=== PATIENT | male | born 1970 | race Caucasian/White ===

== ENCOUNTER → 2017-07-04 | Outpatient (CLI) | payer BC ==
[2016-05-26 11:00] VITALS: BP 105/69
[~2017-07-04] MED LIST: ALPR0.5T PO; HYDR-971 PO; OXYC-323 PO; PANT20TA2 PO; PANT20TA3 PO; RANI150T6 PO; SERT100T8 PO; SERT25TA PO
--- NOTE | 2017-07-04 12:21 | KCIC ---
EXAM: Right knee, 2 views. HISTORY: Pain. COMPARISON: None. FINDINGS: Frontal and lateral views of the right knee are obtained. There is no fracture, dislocation or subluxation. There is trace joint fluid. IMPRESSION: No acute osseous finding. Electronically signed by: Adriane Glaser MD (07/04/2017 12:18 PM) [facility]
== END | disposition home or self-care (01) ==
LOC: KCIC 11:38
PROVIDERS: ATTEND Nurse Practitioner Family
DX: M25.561 Pain in right knee (principal)
CPT/HCPCS: 73560

== ENCOUNTER 2017-09-13 19:39 | Emergency (ER) | payer BC ==
[2017-09-13] MEDS: MORPHINE SULFATE 4 MG/ML DISP.SYRIN. IV (20:25)
[2017-09-13 20:32] LABS: ADD MAN DIFF? NO
[2017-09-13 20:35] LABS: BASO # 0.1 x10^3/uL (0.0-0.2); BASO % 1 % (0-3); EOS % 2 % (0-3); HEMATOCRIT 43.6 % (39.0-53.0); HEMOGLOBIN 14.8 g/dL (13.0-17.5); LYMPH # 1.9 x10^3/uL (1.0-4.8); LYMPH % 22 % (24-48); MEAN CORPUSCULAR HEMOGLOBIN 30 pg (25-35); MEAN CORPUSCULAR HGB CONC 34 g/dL (31-37); MEAN CORPUSCULAR VOLUME 87 fL (79-100); MONO % 11 % (0-9); NEUT % 64 % (31-73); PLATELET COUNT 275 x10^3/uL (140-400); RED BLOOD COUNT 4.99 x10^6/uL (4.30-5.70); RED CELL DISTRIBUTION WIDTH 14.1 % (11.5-14.5); WHITE BLOOD COUNT 8.8 x10^3/uL (4.0-11.0)
[2017-09-13 20:55] LABS: ANION GAP 12 (6-14); BLOOD UREA NITROGEN 6 mg/dL (8-26); CALCIUM 8.5 mg/dL (8.5-10.1); CARBON DIOXIDE 26 mmol/L (21-32); CHLORIDE 101 mmol/L (98-107); CREATININE 0.8 mg/dL (0.7-1.3); GFR 104.1; GLUCOSE 101 mg/dL (70-99); POTASSIUM 3.4 mmol/L (3.5-5.1); SODIUM 139 mmol/L (136-145)
[2017-09-13] MEDS ORDERED: CONTRAST GIVEN MC (21:00)
[2017-09-13] MEDS: IOHEXOL 300 MG/ML 100ML VIAL. IV (21:12)
[2017-09-13] MEDS: IV NORMAL SALINE 500ML BAG 500 ML IV (21:30)
[2017-09-13] MEDS: HYDROcodone/APAP 5/325MG 1 TAB TABLET PO (23:05)
== END 2017-09-13 22:06 | disposition home or self-care (01) ==
LOC: ER 19:39
DX: K42.9 Umbilical hernia without obstruction or gangrene (principal); F41.9 Anxiety disorder, unspecified; Z90.49 Acquired absence of other specified parts of digestive tract
CPT/HCPCS: 36415; 74160; 80048; 83605; 85025; 96361; 96374; 99285-25; J2270; J7040; Q9967

== ENCOUNTER 2017-09-22 09:06 | Day surgery (SDC) | payer BC ==
[~2017-09-22 09:06] MED LIST changes: -ALPR0.5T PO; -HYDR-971 PO; +HYDROmorphone 2 MG/ML VIAL IV; +LIDOCAINE 1% PF 2 ML VIAL. ID; +LIDOCAINE 2% PF Vial for OR 5 ML VIAL.; +ONDANSETRON PF 4 MG/2 ML VIAL. IV; -OXYC-323 PO; -PANT20TA2 PO; -PANT20TA3 PO; +PROPOFOL 20 ML IV; -RANI150T6 PO; +ROCURONIUM 50 MG/5 ML VIAL.; -SERT100T8 PO; -SERT25TA PO; +SUCCINYLCHOLINE 200 MG/10 ML VIAL.; +fentaNYL PF VIAL 100 MCG/2 ML VIAL; +fentaNYL PF VIAL 100 MCG/2 ML VIAL IV
[2017-09-22] MEDS: IV RINGERS,LACTATED 1000ML 1,000 ML IV (09:35)
[2017-09-22] MEDS ORDERED: DEXAMETHASONE SOD PHOS 20 MG/5 ML VIAL. (12:14)
[2017-09-22] MEDS ORDERED: DESFLURANE 31 TO 60 MINUTES IH (12:14)
[2017-09-22] MEDS: BUPIVAC MPF-EPI 0.75%-1:200000 30 ML VIAL. (12:22)
[2017-09-22] MEDS ORDERED: NEOSTIGMINE 10 MG/10 ML VIAL. (12:26)
[2017-09-22] MEDS ORDERED: GLYCOPYRROLATE 1 MG/5 ML VIAL. (12:26)
[2017-09-22] MEDS ORDERED: ONDANSETRON PF 4 MG/2 ML VIAL. (12:26)
[2017-09-22] MEDS ORDERED: fentaNYL PF VIAL 100 MCG/2 ML VIAL (12:28)
[2017-09-22] MEDS: fentaNYL PF VIAL 100 MCG/2 ML VIAL IV ×2 (13:34→13:43)
[2017-09-22] MEDS: PROCHLORPERAZINE 10 MG/2 ML VIAL. IV ×2 (13:34→13:43)
[2017-09-22] MEDS: MORPHINE SULFATE 2 MG/ML DISP.SYRIN. IV ×2 (14:24→14:38)
[2017-09-22] MEDS: oxyCODONE/APAP 5/325 1 TAB TABLET PO (14:25)
== END 2017-09-22 15:43 | disposition home or self-care (01) ==
LOC: SURG 09:06
DX: K43.6 Other and unspecified ventral hernia with obstruction, without gangrene (principal); E66.9 Obesity, unspecified; Z68.35 Body mass index [BMI] 35.0-35.9, adult; F41.9 Anxiety disorder, unspecified; Z72.89 Other problems related to lifestyle; K21.9 Gastro-esophageal reflux disease without esophagitis; Z87.891 Personal history of nicotine dependence; Z90.49 Acquired absence of other specified parts of digestive tract; Z88.6 Allergy status to analgesic agent
CPT/HCPCS: 49653; C1781; J0330; J0780; J1100; J2270; J2405; J2704; J2710; J3010; J3490; J7120

== ENCOUNTER 2018-07-14 10:43 | Inpatient (IN) | payer BC ==
[~2018-07-14] VITALS: Ht 170.2 cm; Wt 106.6 kg
[~2018-07-14 10:43] MED LIST changes: +ALPR0.5T PO; +HYDR-971 PO; -HYDROmorphone 2 MG/ML VIAL IV; -LIDOCAINE 1% PF 2 ML VIAL. ID; -LIDOCAINE 2% PF Vial for OR 5 ML VIAL.; -ONDANSETRON PF 4 MG/2 ML VIAL. IV; +OXYC-323 PO; +PANT20TA2 PO; +PANT20TA3 PO; -PROPOFOL 20 ML IV; +RANI150T21 PO; -ROCURONIUM 50 MG/5 ML VIAL.; +SERT100T8 PO; +SERT25TA PO; -SUCCINYLCHOLINE 200 MG/10 ML VIAL.; -fentaNYL PF VIAL 100 MCG/2 ML VIAL; -fentaNYL PF VIAL 100 MCG/2 ML VIAL IV
[2018-07-14] MEDS ORDERED: ALBUTEROL SULFATE 2.5 MG/3 ML NEBU. NEB ONE (11:45)
[2018-07-14 11:59] LABS: BASO # 0.1 x10^3/uL (0.0-0.2); BASO % 1 % (0-3); EOS # 0.2 x10^3/uL (0.0-0.7); EOS % 2 % (0-3); HEMATOCRIT 39.7 % (39.0-53.0); HEMOGLOBIN 13.8 g/dL (13.0-17.5); LYMPH # 1.8 x10^3/uL (1.0-4.8); LYMPH % 19 % (24-48); MEAN CORPUSCULAR HEMOGLOBIN 31 pg (25-35); MEAN CORPUSCULAR HGB CONC 35 g/dL (31-37); MEAN CORPUSCULAR VOLUME 89 fL (79-100); MONO # 0.8 x10^3/uL (0.0-1.1); MONO % 9 % (0-9); NEUT # 6.4 x10^3uL (1.8-7.7); NEUT % 68 % (31-73); PLATELET COUNT 283 x10^3/uL (140-400); RED BLOOD COUNT 4.47 x10^6/uL (4.30-5.70); RED CELL DISTRIBUTION WIDTH 14.2 % (11.5-14.5); WHITE BLOOD COUNT 9.3 x10^3/uL (4.0-11.0)
--- NOTE | 2018-07-14 12:11 | PHYS DOC ---
Past Medical History Past Medical History: Anxiety Past Surgical History: Appendectomy, Cholecystectomy, Tonsillectomy, Other Additional Past Surgical Histo: left foot compound fracture repair,HERNIA Alcohol Use: Occasionally Drug Use: None Adult General Chief Complaint Chief Complaint: SHORTNESS OF BREATH HPI HPI Patient is a 47 year old male who presents to the ER with complaints of a cough and shortness of breath since 07/12/18. Pt states on that day he had surgery on his left ankle here on 07/12/18. He denies any fever. States he has been taking a full strength aspirin since the surgery. He reports the cough is productive with yellow sputum produced. Pt denies any nausea, vomiting, chest pain, or weakness. States he feels short of breath with activity. Pt has been taking 2 tablets of 5 mg oxycodone every 4-6 hours as needed for pain since the surgery and reports that his pain has been well controlled. Review of Systems Review of Systems Constitutional: Denies fever or chills [] Eyes: Denies change in visual acuity, redness, or eye pain [] HENT: Denies nasal congestion or sore throat [] Respiratory: Reports cough with yellow sputum, shortness of breath since after having surgery on 07/12/18 Cardiovascular: No additional information not addressed in HPI [] GI: Denies abdominal pain, nausea, vomiting, or diarrhea [] Integument: Denies rash or skin lesions [] Neurologic: Denies headache, focal weakness or sensory changes [] All other systems were reviewed and found to be within normal limits, except as documented in this note. Current Medications Current Medications Current Medications Medications (Trade) Dose Ordered Sig/Fuentes Start Time Stop Time Status Last Admin Dose Admin Albuterol Sulfate (Ventolin Neb Soln) 2.5 mg 1X ONCE 07/14/18 11:45 07/14/18 11:46 DC 07/14/18 11:58 2.5 MG Info (CONTRAST GIVEN -- Rx MONITORING) 1 each PRN DAILY PRN 07/14/18 13:00 07/16/18 12:59 Iohexol (Omnipaque 300 Mg/ml) 75 ml 1X ONCE 07/14/18 13:00 07/14/18 13:01 DC 07/14/18 13:17 75 ML Piperacillin Sod/ Tazobactam Sod 3.375 gm/Sodium Chloride 50 ml @ 100 mls/hr 1X ONCE 07/14/18 14:15 07/14/18 14:44 Cancel Allergies Allergies Allergies Coded Allergies Type Severity Reaction Last Updated Verified ibuprofen Allergy Unknown Swelling 09/22/17 Yes Physical Exam Physical Exam Constitutional: Well developed, well nourished, no acute distress, non-toxic appearance. [] HENT: Normocephalic, atraumatic, bilateral external ears normal, oropharynx moist, no oral exudates, nose normal. [] Eyes: PERRLA, conjunctiva normal, no discharge. [] Neck: Normal range of motion, no tenderness, supple, no stridor. [] Cardiovascular:Heart rate regular rhythm, no murmur [] Lungs & Thorax: Left lung sounds CTA, right lung sounds diminished with crackles posterior Skin: Warm, dry, no erythema, no rash. [] Extremities: No cyanosis, no clubbing, ROM intact, no edema; Post-op splint to L ankle. [] Neurologic: Alert and oriented X 3, normal motor function, normal sensory function, no focal deficits noted. [] Psychologic: Affect normal, judgement normal, mood normal. [] Current Patient Data Vital Signs Vital Signs Date Time Temp Pulse Resp B/P (MAP) Pulse Ox O2 Delivery O2 Flow Rate FiO2 07/14/18 14:15 100 20 179/87 (117) 96 Room Air 07/14/18 11:16 98.3 98.3 Lab Values Laboratory Tests Test 07/14/18 11:45 White Blood Count 9.3 x10^3/uL (4.0-11.0) Red Blood Count 4.47 x10^6/uL (4.30-5.70) Hemoglobin 13.8 g/dL (13.0-17.5) Hematocrit 39.7 % (39.0-53.0) Mean Corpuscular Volume 89 fL (79-100) Mean Corpuscular Hemoglobin 31 pg (25-35) Mean Corpuscular Hemoglobin Concent 35 g/dL (31-37) Red Cell Distribution Width 14.2 % (11.5-14.5) Platelet Count 283 x10^3/uL (140-400) Neutrophils (%) (Auto) 68 % (31-73) Lymphocytes (%) (Auto) 19 % (24-48) L Monocytes (%) (Auto) 9 % (0-9) Eosinophils (%) (Auto) 2 % (0-3) Basophils (%) (Auto) 1 % (0-3) Neutrophils # (Auto) 6.4 x10^3uL (1.8-7.7) Lymphocytes # (Auto) 1.8 x10^3/uL (1.0-4.8) Monocytes # (Auto) 0.8 x10^3/uL (0.0-1.1) Eosinophils # (Auto) 0.2 x10^3/uL (0.0-0.7) Basophils # (Auto) 0.1 x10^3/uL (0.0-0.2) Sodium Level 142 mmol/L (136-145) Potassium Level 3.7 mmol/L (3.5-5.1) Chloride Level 105 mmol/L (98-107) Carbon Dioxide Level 26 mmol/L (21-32) Anion Gap 11 (6-14) Blood Urea Nitrogen 11 mg/dL (8-26) Creatinine 1.0 mg/dL (0.7-1.3) Estimated GFR (Cockcroft-Gault) 80.1 BUN/Creatinine Ratio 11 (6-20) Glucose Level 93 mg/dL (70-99) Calcium Level 9.0 mg/dL (8.5-10.1) Total Bilirubin 0.3 mg/dL (0.2-1.0) Aspartate Amino Transferase (AST) 28 U/L (15-37) Alanine Aminotransferase (ALT) 94 U/L (16-63) H Alkaline Phosphatase 90 U/L (46-116) Total Protein 7.6 g/dL (6.4-8.2) Albumin 3.3 g/dL (3.4-5.0) L Albumin/Globulin Ratio 0.8 (1.0-1.7) L Laboratory Tests 07/14/18 11:45 Laboratory Tests 07/14/18 11:45 EKG EKG [] Radiology/Procedures Radiology/Procedures PROCEDURE: CT ANGIOGRAPHY CHEST CT ANGIOGRAPHY CHEST Indication: CHEST PAIN, SHORTNESS OF BREATH, AND COUGH
OMNI 300 75ML, NO PRIORS . Comparison: No comparison is available. Technique: After intravenous contrast administration, CT imaging was performed of the chest. MIP reconstructions were obtained. Exposure: One or more of the following individualized dose reduction techniques were utilized for this examination: 1. Automated exposure control 2. Adjustment of the mA and/or kV according to patient size 3. Use of iterative reconstruction technique. FINDINGS: Pulmonary arteries:No evidence of pulmonary embolism. Thoracic aorta: No evidence of aneurysm or dissection. Thyroid gland:Visualized aspect is unremarkable. Lymph nodes:No significant enlargement Heart: No significant pericadial effusion. Esophagus: Small hiatal hernia versus mild distal esophageal wall thickening. Pleural spaces: No significant effusion Lungs: Multiple patchy foci of airspace consolidation, mainly throughout the right lung. To lesser extent involving the left lower lobe. Many of these have a smaller nodular morphology. Trachea and central airways: Patent Bones: No destructive process Upper abdomen: Slices through the upper abdomen are limited due to the technique .No obvious acute findings. IMPRESSION: 1. Numerous airspace opacities, throughout the right lung, and to a lesser extent in the left lower lobe. These are most likely of inflammatory or infectious etiology. However, recommend follow-up CT chest after treatment to confirm that they improved/resolved. 2. Negative for pulmonary embolism.[] PROCEDURE: CHEST PA & LATERAL PA and lateral chest radiograph. History: Ankle surgery 2 days ago. Chest tightness and shortness of breath. Comparison: May 25, 2018. Findings: Cardiomediastinal silhouette is within normal limits for size. No pneumothorax or pleural effusion is identified. There is interval development of alveolar infiltrates involving the right upper lobe and right middle lobe. Impression: 1. Right upper and right middle lobe infiltrate, compatible with pneumonia Course & Med Decision Making Course & Med Decision Making Pertinent Labs and Imaging studies reviewed. (See chart for details) Dx: postoperative pneumonia Pt's cxr revealed R upper and mid lobe infiltrates. 4.5 gm of zosyn IV was given in the ER. VSS. CT chest negative for PE 1415- Spoke with Dr. Bryson will admit patient for post-op pneumonia [] Dragon Disclaimer Dragon Disclaimer This electronic medical record was generated, in whole or in part, using a voice recognition dictation system. Departure Departure Impression: Primary Impression: Postoperative pneumonia Disposition: 09 ADMITTED INPATIENT Admitting Physician: Deanne Bryson Condition: STABLE Referrals: KRISTIAN KWAN MD (PCP) TANIA DAILY CASING COOKER Jul 14, 2018 12:11
[2018-07-14 12:12] LABS: GFR 80.1; POTASSIUM 3.7 mmol/L (3.5-5.1)
[2018-07-14 12:18] LABS: ALBUMIN 3.3 g/dL (3.4-5.0); ALBUMIN/GLOBULIN RATIO 0.8 (1.0-1.7); TOTAL BILIRUBIN 0.3 mg/dL (0.2-1.0); TOTAL PROTEIN 7.6 g/dL (6.4-8.2)
--- NOTE | 2018-07-14 12:33 | RAD ---
PA and lateral chest radiograph. History: Ankle surgery 2 days ago. Chest tightness and shortness of breath. Comparison: May 25, 2018. Findings: Cardiomediastinal silhouette is within normal limits for size. No pneumothorax or pleural effusion is identified. There is interval development of alveolar infiltrates involving the right upper lobe and right middle lobe. Impression: 1. Right upper and right middle lobe infiltrate, compatible with pneumonia Electronically signed by: David Mace MD (07/14/2018 12:30 PM) [place] [id number]
[2018-07-14] MEDS ORDERED: IOHEXOL 300 MG/ML 100ML VIAL. IV ONE (13:00)
[2018-07-14] MEDS ORDERED: CONTRAST GIVEN. MC PRN (13:00)
--- NOTE | 2018-07-14 13:51 | RAD ---
CT ANGIOGRAPHY CHEST Indication: CHEST PAIN, SHORTNESS OF BREATH, AND COUGH
OMNI 300 75ML, NO PRIORS . Comparison: No comparison is available. Technique: After intravenous contrast administration, CT imaging was performed of the chest. MIP reconstructions were obtained. Exposure: One or more of the following individualized dose reduction techniques were utilized for this examination: 1. Automated exposure control 2. Adjustment of the mA and/or kV according to patient size 3. Use of iterative reconstruction technique. FINDINGS: Pulmonary arteries:No evidence of pulmonary embolism. Thoracic aorta: No evidence of aneurysm or dissection. Thyroid gland:Visualized aspect is unremarkable. Lymph nodes:No significant enlargement Heart: No significant pericadial effusion. Esophagus: Small hiatal hernia versus mild distal esophageal wall thickening. Pleural spaces: No significant effusion Lungs: Multiple patchy foci of airspace consolidation, mainly throughout the right lung. To lesser extent involving the left lower lobe. Many of these have a smaller nodular morphology. Trachea and central airways: Patent Bones: No destructive process Upper abdomen: Slices through the upper abdomen are limited due to the technique .No obvious acute findings. IMPRESSION: 1. Numerous airspace opacities, throughout the right lung, and to a lesser extent in the left lower lobe. These are most likely of inflammatory or infectious etiology. However, recommend follow-up CT chest after treatment to confirm that they improved/resolved. 2. Negative for pulmonary embolism. Electronically signed by: David Francis MD (07/14/2018 1:48 PM) [facility]
[2018-07-14] MEDS ORDERED: PIPERACILLIN/TAZOBACTAM 3.375 GM in IV NORMAL SALINE 50ML 50 ML IV ONE (14:15)
[2018-07-14] MEDS ORDERED: diphenhydrAMINE HCL 25 MG CAPSULE PO PRN (14:30)
[2018-07-14] MEDS ORDERED: PIPERACILLIN/TAZOBACTAM 4.5 GM in IV NORMAL SALINE 100ML 100 ML IV ONE (14:30)
[2018-07-14] MEDS ORDERED: ONDANSETRON ODT 4 MG TAB.RAPDIS. PO PRN (14:30)
[2018-07-14] MEDS ORDERED: ACETAMINOPHEN/CODEINE 300/30MG TABLET. PO PRN (14:30)
[2018-07-14] MEDS ORDERED: PIP/TAZO PER PHARMACY MC PRN (14:30)
[2018-07-14] MEDS ORDERED: guaiFENesin DM 200MG/20MG 10 ML SYRUP PO PRN (14:30)
[2018-07-14] MEDS ORDERED: ACETAMINOPHEN 500 MG TABLET PO PRN (14:30)
[2018-07-14] MEDS ORDERED: ONDANSETRON PF 4 MG/2 ML VIAL. IV PRN (14:30)
[2018-07-14] MEDS ORDERED: ALPRAZolam 0.5 MG TABLET PO PRN (14:30)
--- NOTE | 2018-07-14 15:06 | PDOC1 ---
History and Physical Date of Admission Date of Admission DATE: 07/14/18 TIME: 15:01 Identification/Chief Complaint Chief Complaint SOA could not breathe today, coughing phlegm Source Source: Caregiver, Chart review, Patient History of Present Illness History of Present Illness 47-year-old obese male, last here May 2016 under my service for cholelithiasis and underwent surgery for that. He is not taking any more GERD meds or anxiety/depression meds that he used to take in 2016. He just had recently left ankle I and D done as outpatient at - from an injurt that started way back in 2006. On that day of sx, he had some cough and greenish phlegm. No temperatures at home. But today woke up very short of breath - thought he was going to pass out hence went to the emergency room. At the emergency room CTA shows no PE but multilobar pneumonia mostly the right lung field is opacified with a little bit of the left lower lung field involvement. Sats are 94% on room air with a heart rate 100. WBC 9.3. He is nontoxic appearing. Admits to cough greenish phlegm. We will admit , Zosyn and add pulmo consult. He takes oxycodone IR only for the recent surgery otherwise no other meds. Discussed with at bedside, seen at the emergency room NEver smoker His sx was done as OP only,. Past Medical History Cardiovascular: No pertinent hx Pulmonary: No pertinent hx, Bronchitis CENTRAL NERVOUS SYSTEM: Other GI: GERD Heme/Onc: No pertinent hx Psych: Anxiety Musculoskeletal: Other Rheumatologic: No pertinent hx Infectious disease: No pertinent hx Renal/: No pertinent hx Endocrine: No pertinent hx Past Surgical History Past Surgical History: Appendectomy, Tonsillectomy, Other (left ankle I and D 2 days [employer]) Family History Family History: Cancer, Coronary Artery Disease, Heart Disease, Stroke Social History Smoke: No ALCOHOL: occassional Drugs: None Current Medications Current Medications Current Medications Albuterol Sulfate (Ventolin Neb Soln) 2.5 mg 1X ONCE NEB Last administered on 07/14/18at 11:58; Start 07/14/18 at 11:45; Stop 07/14/18 at 11:46; Status DC Iohexol (Omnipaque 300 Mg/ml) 75 ml 1X ONCE IV Last administered on at 13:17; Start 07/14/18 at 13:00; Stop 07/14/18 at 13:01; Status DC Info (CONTRAST GIVEN -- Rx MONITORING) 1 each PRN DAILY PRN MC SEE COMMENTS; Start 07/14/18 at 13:00; Stop 07/16/18 at 12:59 Piperacillin Sod/ Tazobactam Sod 3.375 gm/Sodium Chloride 50 ml @ 100 mls/hr 1X ONCE IV ; Start 07/14/18 at 14:15; Stop 07/14/18 at 14:44; Status Cancel Piperacillin Sod/ Tazobactam Sod 4.5 gm/Sodium Chloride 100 ml @ 200 mls/hr 1X ONCE IV Last administered on 07/14/18at 14:41; Start 07/14/18 at 14:30; Stop 07/14/18 at 14:59; Status DC Piperacillin Sod/ Tazobactam Sod (Zosyn Per Pharmacy) 1 each PRN DAILY PRN MC SEE COMMENTS; Start 07/14/18 at 14:30; Status UNV Guaifenesin (Robitussin Dm) 10 ml PRN Q6HRS PRN PO COUGH; Start 07/14/18 at 14 :30 Ondansetron HCl (Zofran) 4 mg PRN Q6HRS PRN IV NAUSEA/VOMITING; Start at 14:30 Ondansetron HCl (Zofran Odt) 4 mg PRN Q6HRS PRN PO NAUSEA/VOMITING; Start at 14:30 Acetaminophen (Tylenol) 500 mg PRN Q6HRS PRN PO MILD PAIN / TEMP; Start at 14:30 Acetaminophen/ Codeine Phosphate (Tylenol #3) 1 tab PRN Q6HRS PRN PO MODERATE PAIN; Start 07/14/18 at 14:30 Diphenhydramine HCl (Benadryl) 25 mg PRN QHS PRN PO INSOMNIA; Start 07/14/18 at 14:30 Alprazolam (Xanax) 0.5 mg PRN Q6HRS PRN PO ANXIETY / AGITATION; Start at 14:30 Oxycodone/ Acetaminophen (Percocet 5/325) 1 tab PRN QID PRN PO SEVERE PAIN; Start 07/14/18 at 14:30 Active Scripts Active Reported Percocet 5-325 Mg Tablet (Oxycodone/Acetaminophen) 1 Each Tablet 1-2 Tab PO Q4- 6HRS LAST DOSE GIVEN: DATE: 09/22/17 TIME: so next dose at as needed for pain Xanax (Alprazolam) 0.5 Mg Tablet 0.5 Mg PO PRN Q6HRS PRN Allergies Allergies: Coded Allergies: ibuprofen (Verified Allergy, Unknown, Swelling, 09/22/17) ROS Review of System As per history of present illness, the rest of ROS 14 point negative Physical Exam General: Alert, Oriented X3, Cooperative, No acute distress HEENT: Atraumatic, PERRLA Lungs: Normal air movement, Other (diminished breath sounds, no wheezing, diminished secondary to increased AP diameter, dullness to percussion right greater than the left and also on the bases) Heart: S1S2, RRR, no thrills, no rubs, no gallops, no murmurs Cardiovascular: S1, S2 Abdomen: Normal bowel sounds, Soft, No tenderness, No hepatosplenomegaly, No masses Rectal Exam: not examined PELVIC: Nml ext genitalia Extremities: Other (left ankle dressing and he ambulates with a rolling extremity sort of walker) Skin: No rashes, No breakdown, No significant lesion Neuro: Normal gait, Normal speech, Strength at 5/5 X4 ext, Normal tone, Sensation intact, Cranial nerves 3-12 NL, Reflexes 2+ Psych/Mental Status: Mental status NL, Mood NL Vitals Vitals Vital Signs Date Time Temp Pulse Resp B/P (MAP) Pulse Ox O2 Delivery O2 Flow Rate FiO2 07/14/18 14:55 99 20 132/73 (92) 97 Room Air 07/14/18 11:16 98.3 98.3 Labs Labs Laboratory Tests Test 07/14/18 11:45 White Blood Count 9.3 x10^3/uL (4.0-11.0) Red Blood Count 4.47 x10^6/uL (4.30-5.70) Hemoglobin 13.8 g/dL (13.0-17.5) Hematocrit 39.7 % (39.0-53.0) Mean Corpuscular Volume 89 fL (79-100) Mean Corpuscular Hemoglobin 31 pg (25-35) Mean Corpuscular Hemoglobin Concent 35 g/dL (31-37) Red Cell Distribution Width 14.2 % (11.5-14.5) Platelet Count 283 x10^3/uL (140-400) Neutrophils (%) (Auto) 68 % (31-73) Lymphocytes (%) (Auto) 19 % (24-48) Monocytes (%) (Auto) 9 % (0-9) Eosinophils (%) (Auto) 2 % (0-3) Basophils (%) (Auto) 1 % (0-3) Neutrophils # (Auto) 6.4 x10^3uL (1.8-7.7) Lymphocytes # (Auto) 1.8 x10^3/uL (1.0-4.8) Monocytes # (Auto) 0.8 x10^3/uL (0.0-1.1) Eosinophils # (Auto) 0.2 x10^3/uL (0.0-0.7) Basophils # (Auto) 0.1 x10^3/uL (0.0-0.2) Sodium Level 142 mmol/L (136-145) Potassium Level 3.7 mmol/L (3.5-5.1) Chloride Level 105 mmol/L (98-107) Carbon Dioxide Level 26 mmol/L (21-32) Anion Gap 11 (6-14) Blood Urea Nitrogen 11 mg/dL (8-26) Creatinine 1.0 mg/dL (0.7-1.3) Estimated GFR (Cockcroft-Gault) 80.1 BUN/Creatinine Ratio 11 (6-20) Glucose Level 93 mg/dL (70-99) Calcium Level 9.0 mg/dL (8.5-10.1) Total Bilirubin 0.3 mg/dL (0.2-1.0) Aspartate Amino Transf (AST/SGOT) 28 U/L (15-37) Alanine Aminotransferase (ALT/SGPT) 94 U/L (16-63) Alkaline Phosphatase 90 U/L (46-116) Total Protein 7.6 g/dL (6.4-8.2) Albumin 3.3 g/dL (3.4-5.0) Albumin/Globulin Ratio 0.8 (1.0-1.7) Laboratory Tests Test 07/14/18 11:45 White Blood Count 9.3 x10^3/uL (4.0-11.0) Red Blood Count 4.47 x10^6/uL (4.30-5.70) Hemoglobin 13.8 g/dL (13.0-17.5) Hematocrit 39.7 % (39.0-53.0) Mean Corpuscular Volume 89 fL (79-100) Mean Corpuscular Hemoglobin 31 pg (25-35) Mean Corpuscular Hemoglobin Concent 35 g/dL (31-37) Red Cell Distribution Width 14.2 % (11.5-14.5) Platelet Count 283 x10^3/uL (140-400) Neutrophils (%) (Auto) 68 % (31-73) Lymphocytes (%) (Auto) 19 % (24-48) Monocytes (%) (Auto) 9 % (0-9) Eosinophils (%) (Auto) 2 % (0-3) Basophils (%) (Auto) 1 % (0-3) Neutrophils # (Auto) 6.4 x10^3uL (1.8-7.7) Lymphocytes # (Auto) 1.8 x10^3/uL (1.0-4.8) Monocytes # (Auto) 0.8 x10^3/uL (0.0-1.1) Eosinophils # (Auto) 0.2 x10^3/uL (0.0-0.7) Basophils # (Auto) 0.1 x10^3/uL (0.0-0.2) Sodium Level 142 mmol/L (136-145) Potassium Level 3.7 mmol/L (3.5-5.1) Chloride Level 105 mmol/L (98-107) Carbon Dioxide Level 26 mmol/L (21-32) Anion Gap 11 (6-14) Blood Urea Nitrogen 11 mg/dL (8-26) Creatinine 1.0 mg/dL (0.7-1.3) Estimated GFR (Cockcroft-Gault) 80.1 BUN/Creatinine Ratio 11 (6-20) Glucose Level 93 mg/dL (70-99) Calcium Level 9.0 mg/dL (8.5-10.1) Total Bilirubin 0.3 mg/dL (0.2-1.0) Aspartate Amino Transf (AST/SGOT) 28 U/L (15-37) Alanine Aminotransferase (ALT/SGPT) 94 U/L (16-63) Alkaline Phosphatase 90 U/L (46-116) Total Protein 7.6 g/dL (6.4-8.2) Albumin 3.3 g/dL (3.4-5.0) Albumin/Globulin Ratio 0.8 (1.0-1.7) VTE Prophylaxis Ordered VTE Prophylaxis Devices: Yes VTE Pharmacological Prophylaxi: Yes Assessment/Plan Assessment/Plan Right lobar pneumonia with some left lower lobe involvement Never smoker Obesity, BMI 37 Recent left ankle I and D for an injury way back 2006 - sx done as OP History GERD-that is chronic stable Plan: Agree with IV Zosyn Pulmo consult, add DuoNeb's and cough medicine, No real home meds to reconcile except for oxycodone Seen at ER, discussed with JOSE RIVAS MD Jul 14, 2018 15:06
[2018-07-14 15:30] VITALS: BP 124/83
[2018-07-14] MEDS: IPRATRPIUM/ALBUTEROL 0.5/2.5MG 3 ML NEBU. NEB SCH ×2 (15:47→21:00)
[2018-07-14] MEDS: oxyCODONE/APAP 5/325 1 TAB TABLET PO PRN ×2 (15:56→22:12)
--- NOTE | 2018-07-14 16:12 | EKG ---
[facility] [address] [place] [address] Test Date: 2018-07-14 Test Time: 14:10:07 Pat Name: JACKELYN CONTRERAS Department: Room: 560 1 Gender: Sales Account Executive: : 1970 Requested By: TANIA DAILY Order Number: [id number] Reading MD: Casey Everett MD Measurements Intervals [place] Rate: P: PA: QRS: QRSD: T: QT: QTc: Interpretive Statements SR Electronically Signed On 07-17-2018 11:26:06 CDT by Casey Everett MD
[2018-07-14] MEDS: BENZONATATE 100 MG CAPSULE. PO SCH ×2 (17:36→21:09)
[2018-07-14] MEDS: guaiFENesin DM 200MG/20MG 10 ML SYRUP PO SCH ×2 (17:37→21:09)
--- NOTE | 2018-07-14 17:42 | PDOC ---
PULMONARY PROGRESS NOTES Vitals Vital Signs Date Time Temp Pulse Resp B/P (MAP) Pulse Ox O2 Delivery O2 Flow Rate FiO2 07/14/18 15:56 Room Air 07/14/18 15:47 95 07/14/18 15:30 99.3 96 19 124/83 (97) 99.3 Cardiovascular: S1, S2 Labs Laboratory Tests Test 07/14/18 11:45 White Blood Count 9.3 x10^3/uL (4.0-11.0) Red Blood Count 4.47 x10^6/uL (4.30-5.70) Hemoglobin 13.8 g/dL (13.0-17.5) Hematocrit 39.7 % (39.0-53.0) Mean Corpuscular Volume 89 fL (79-100) Mean Corpuscular Hemoglobin 31 pg (25-35) Mean Corpuscular Hemoglobin Concent 35 g/dL (31-37) Red Cell Distribution Width 14.2 % (11.5-14.5) Platelet Count 283 x10^3/uL (140-400) Neutrophils (%) (Auto) 68 % (31-73) Lymphocytes (%) (Auto) 19 % (24-48) Monocytes (%) (Auto) 9 % (0-9) Eosinophils (%) (Auto) 2 % (0-3) Basophils (%) (Auto) 1 % (0-3) Neutrophils # (Auto) 6.4 x10^3uL (1.8-7.7) Lymphocytes # (Auto) 1.8 x10^3/uL (1.0-4.8) Monocytes # (Auto) 0.8 x10^3/uL (0.0-1.1) Eosinophils # (Auto) 0.2 x10^3/uL (0.0-0.7) Basophils # (Auto) 0.1 x10^3/uL (0.0-0.2) Sodium Level 142 mmol/L (136-145) Potassium Level 3.7 mmol/L (3.5-5.1) Chloride Level 105 mmol/L (98-107) Carbon Dioxide Level 26 mmol/L (21-32) Anion Gap 11 (6-14) Blood Urea Nitrogen 11 mg/dL (8-26) Creatinine 1.0 mg/dL (0.7-1.3) Estimated GFR (Cockcroft-Gault) 80.1 BUN/Creatinine Ratio 11 (6-20) Glucose Level 93 mg/dL (70-99) Calcium Level 9.0 mg/dL (8.5-10.1) Total Bilirubin 0.3 mg/dL (0.2-1.0) Aspartate Amino Transf (AST/SGOT) 28 U/L (15-37) Alanine Aminotransferase (ALT/SGPT) 94 U/L (16-63) Alkaline Phosphatase 90 U/L (46-116) Total Protein 7.6 g/dL (6.4-8.2) Albumin 3.3 g/dL (3.4-5.0) Albumin/Globulin Ratio 0.8 (1.0-1.7) Laboratory Tests Test 07/14/18 11:45 White Blood Count 9.3 x10^3/uL (4.0-11.0) Red Blood Count 4.47 x10^6/uL (4.30-5.70) Hemoglobin 13.8 g/dL (13.0-17.5) Hematocrit 39.7 % (39.0-53.0) Mean Corpuscular Volume 89 fL (79-100) Mean Corpuscular Hemoglobin 31 pg (25-35) Mean Corpuscular Hemoglobin Concent 35 g/dL (31-37) Red Cell Distribution Width 14.2 % (11.5-14.5) Platelet Count 283 x10^3/uL (140-400) Neutrophils (%) (Auto) 68 % (31-73) Lymphocytes (%) (Auto) 19 % (24-48) Monocytes (%) (Auto) 9 % (0-9) Eosinophils (%) (Auto) 2 % (0-3) Basophils (%) (Auto) 1 % (0-3) Neutrophils # (Auto) 6.4 x10^3uL (1.8-7.7) Lymphocytes # (Auto) 1.8 x10^3/uL (1.0-4.8) Monocytes # (Auto) 0.8 x10^3/uL (0.0-1.1) Eosinophils # (Auto) 0.2 x10^3/uL (0.0-0.7) Basophils # (Auto) 0.1 x10^3/uL (0.0-0.2) Sodium Level 142 mmol/L (136-145) Potassium Level 3.7 mmol/L (3.5-5.1) Chloride Level 105 mmol/L (98-107) Carbon Dioxide Level 26 mmol/L (21-32) Anion Gap 11 (6-14) Blood Urea Nitrogen 11 mg/dL (8-26) Creatinine 1.0 mg/dL (0.7-1.3) Estimated GFR (Cockcroft-Gault) 80.1 BUN/Creatinine Ratio 11 (6-20) Glucose Level 93 mg/dL (70-99) Calcium Level 9.0 mg/dL (8.5-10.1) Total Bilirubin 0.3 mg/dL (0.2-1.0) Aspartate Amino Transf (AST/SGOT) 28 U/L (15-37) Alanine Aminotransferase (ALT/SGPT) 94 U/L (16-63) Alkaline Phosphatase 90 U/L (46-116) Total Protein 7.6 g/dL (6.4-8.2) Albumin 3.3 g/dL (3.4-5.0) Albumin/Globulin Ratio 0.8 (1.0-1.7) Medications Active Scripts Medications Dose Route/Sig Max Daily Dose Days Date Category Dose Instructions Percocet 5-325 Mg Tablet (Oxycodone/Acetaminophen) 1 Each Tablet 1-2 Tab PO Q4-6HRS 09/22/17 Reported LAST DOSE GIVEN: DATE: 09/22/17 TIME: so next dose at as needed for pain Xanax (Alprazolam) 0.5 Mg Tablet 0.5 Mg PO PRN Q6HRS PRN 02/13/15 Reported Impression . ASPIRATION PNEUMONIA AGREE WITH CURRENT RX THANKS DULCE BREEN MD Jul 14, 2018 17:42
[2018-07-14 19:59] VITALS: BP 114/74
[2018-07-14] MEDS ORDERED: ONDA8TAB12 PO (20:06)
[2018-07-14] MEDS ORDERED: DOCU100C28 PO (20:06)
[2018-07-14] MEDS ORDERED: ASPI325T8 PO (20:06)
[2018-07-14] MEDS ORDERED: ASPIRIN 325 MG TABLET PO ONE (20:15)
[2018-07-14] MEDS: PIPERACILLIN/TAZOBACTAM 3.375 GM in IV NORMAL SALINE 50ML 50 ML IV SCH (21:00)
[2018-07-14 23:59] VITALS: BP 108/60
[2018-07-15] MEDS: PIPERACILLIN/TAZOBACTAM 3.375 GM in IV NORMAL SALINE 50ML 50 ML IV SCH ×2 (01:00→06:13)
--- NOTE | 2018-07-15 01:19 | CONS ---
DATE OF CONSULTATION: 07/14/2018 ATTENDING PHYSICIAN: Dr. Bryson. REASON FOR CONSULTATION: The patient is seen in pulmonary consultation at the request of Dr. Bryson for abnormal CT and chest x-ray. The patient is a 47-year-old that came in with a 24-hour history of increasing shortness of breath, cough productive of some yellow orange sputum, some subjective fever. No nausea, vomiting. Apparently, the patient had left ankle surgery on the as an outpatient. He reports no emesis during induction. No emesis after his surgery. He reports no nausea, vomiting, diarrhea at home. He came in through the Emergency Room. Chest x-ray revealed infiltrate on the right. CT angiogram was performed. There was no evidence of pulmonary emboli. There were numerous airspace opacities throughout the right lung and less on the left, negative for PE. PAST MEDICAL HISTORY: Anxiety, appendectomy, cholecystectomy, tonsillectomy, previous left foot comminuted fracture. He has never smoked. REVIEW OF SYSTEMS: As indicated above, otherwise, a 10-point system was reviewed and negative. The patient is not inhaling any toxic fumes or dust. He denies any illicit drug use. MEDICATIONS: List was reviewed. ALLERGIES: IBUPROFEN. FAMILY HISTORY: No family history of lung disorders. CURRENT MEDICATION: List was likewise reviewed. PHYSICAL EXAMINATION: VITAL SIGNS: Stable. O2 saturation was greater than 92%. HEENT: Eyes, the sclerae were nonicteric. NECK: Jugular venous distention was not elevated. No lymphadenopathy. CHEST: Full expansion. LUNGS: Crackles throughout both lung murphy. No wheezes. CARDIOVASCULAR: Regular rate and rhythm with S1, S2, no S3. ABDOMEN: Soft, nontender, nondistended. EXTREMITIES: No clubbing, cyanosis or edema. NEUROLOGIC: The patient was awake, alert, following commands. A detailed neuro exam was not performed. LABORATORY DATA: Reviewed. Chest x-ray and CT reviewed. IMPRESSION: 1. Bilateral pulmonary opacities compatible with aspiration pneumonia. 2. Progressive dyspnea secondary to above. 3. BMI of 37. 4. Recent left ankle I and D surgery done as an outpatient. 5. Gastroesophageal reflux. PLAN 1. I agree with current utilization of Zosyn. 2. We will make adjustments on antibiotics depending on patient's clinical response. 3. P.r.n. nebulized treatments. 4. The patient will follow up in the office in 2 months with a repeat CT chest. Dr. Bryson, I do appreciate the privilege in sharing this patient's care. DULCE BREEN MD DR: ANDREW/austin JOB#: [id number] / [id number]
[2018-07-15 03:59] VITALS: BP 116/67
[2018-07-15] MEDS: oxyCODONE/APAP 5/325 1 TAB TABLET PO PRN ×2 (04:50→11:14)
[2018-07-15 07:00] VITALS: BP 124/77
[2018-07-15 07:30] LABS: BASO # 0.1 x10^3/uL (0.0-0.2); BASO % 1 % (0-3); EOS # 0.2 x10^3/uL (0.0-0.7); EOS % 3 % (0-3); HEMATOCRIT 36.2 % (39.0-53.0); HEMOGLOBIN 12.5 g/dL (13.0-17.5); LYMPH # 1.5 x10^3/uL (1.0-4.8); LYMPH % 17 % (24-48); MEAN CORPUSCULAR HEMOGLOBIN 31 pg (25-35); MEAN CORPUSCULAR HGB CONC 35 g/dL (31-37); MEAN CORPUSCULAR VOLUME 89 fL (79-100); MONO # 0.7 x10^3/uL (0.0-1.1); MONO % 8 % (0-9); NEUT % 72 % (31-73); PLATELET COUNT 253 x10^3/uL (140-400); RED BLOOD COUNT 4.08 x10^6/uL (4.30-5.70); RED CELL DISTRIBUTION WIDTH 14.7 % (11.5-14.5); WHITE BLOOD COUNT 8.4 x10^3/uL (4.0-11.0)
[2018-07-15] MEDS: IPRATRPIUM/ALBUTEROL 0.5/2.5MG 3 ML NEBU. NEB SCH ×2 (07:37→11:28)
--- NOTE | 2018-07-15 07:59 | PDOC ---
PULMONARY PROGRESS NOTES Vitals Vital Signs Date Time Temp Pulse Resp B/P (MAP) Pulse Ox O2 Delivery O2 Flow Rate FiO2 07/15/18 07:39 92 Room Air 07/15/18 07:00 98.1 80 18 124/77 (93) 98.1 Cardiovascular: S1, S2 Labs Laboratory Tests Test 07/14/18 11:45 07/15/18 06:05 White Blood Count 9.3 x10^3/uL (4.0-11.0) 8.4 x10^3/uL (4.0-11.0) Red Blood Count 4.47 x10^6/uL (4.30-5.70) 4.08 x10^6/uL (4.30-5.70) Hemoglobin 13.8 g/dL (13.0-17.5) 12.5 g/dL (13.0-17.5) Hematocrit 39.7 % (39.0-53.0) 36.2 % (39.0-53.0) Mean Corpuscular Volume 89 fL (79-100) 89 fL (79-100) Mean Corpuscular Hemoglobin 31 pg (25-35) 31 pg (25-35) Mean Corpuscular Hemoglobin Concent 35 g/dL (31-37) 35 g/dL (31-37) Red Cell Distribution Width 14.2 % (11.5-14.5) 14.7 % (11.5-14.5) Platelet Count 283 x10^3/uL (140-400) 253 x10^3/uL (140-400) Neutrophils (%) (Auto) 68 % (31-73) 72 % (31-73) Lymphocytes (%) (Auto) 19 % (24-48) 17 % (24-48) Monocytes (%) (Auto) 9 % (0-9) 8 % (0-9) Eosinophils (%) (Auto) 2 % (0-3) 3 % (0-3) Basophils (%) (Auto) 1 % (0-3) 1 % (0-3) Neutrophils # (Auto) 6.4 x10^3uL (1.8-7.7) 6.0 x10^3uL (1.8-7.7) Lymphocytes # (Auto) 1.8 x10^3/uL (1.0-4.8) 1.5 x10^3/uL (1.0-4.8) Monocytes # (Auto) 0.8 x10^3/uL (0.0-1.1) 0.7 x10^3/uL (0.0-1.1) Eosinophils # (Auto) 0.2 x10^3/uL (0.0-0.7) 0.2 x10^3/uL (0.0-0.7) Basophils # (Auto) 0.1 x10^3/uL (0.0-0.2) 0.1 x10^3/uL (0.0-0.2) Sodium Level 142 mmol/L (136-145) Potassium Level 3.7 mmol/L (3.5-5.1) Chloride Level 105 mmol/L (98-107) Carbon Dioxide Level 26 mmol/L (21-32) Anion Gap 11 (6-14) Blood Urea Nitrogen 11 mg/dL (8-26) Creatinine 1.0 mg/dL (0.7-1.3) Estimated GFR (Cockcroft-Gault) 80.1 BUN/Creatinine Ratio 11 (6-20) Glucose Level 93 mg/dL (70-99) Calcium Level 9.0 mg/dL (8.5-10.1) Total Bilirubin 0.3 mg/dL (0.2-1.0) Aspartate Amino Transf (AST/SGOT) 28 U/L (15-37) Alanine Aminotransferase (ALT/SGPT) 94 U/L (16-63) Alkaline Phosphatase 90 U/L (46-116) Total Protein 7.6 g/dL (6.4-8.2) Albumin 3.3 g/dL (3.4-5.0) Albumin/Globulin Ratio 0.8 (1.0-1.7) Laboratory Tests Test 07/14/18 11:45 07/15/18 06:05 White Blood Count 9.3 x10^3/uL (4.0-11.0) 8.4 x10^3/uL (4.0-11.0) Red Blood Count 4.47 x10^6/uL (4.30-5.70) 4.08 x10^6/uL (4.30-5.70) Hemoglobin 13.8 g/dL (13.0-17.5) 12.5 g/dL (13.0-17.5) Hematocrit 39.7 % (39.0-53.0) 36.2 % (39.0-53.0) Mean Corpuscular Volume 89 fL (79-100) 89 fL (79-100) Mean Corpuscular Hemoglobin 31 pg (25-35) 31 pg (25-35) Mean Corpuscular Hemoglobin Concent 35 g/dL (31-37) 35 g/dL (31-37) Red Cell Distribution Width 14.2 % (11.5-14.5) 14.7 % (11.5-14.5) Platelet Count 283 x10^3/uL (140-400) 253 x10^3/uL (140-400) Neutrophils (%) (Auto) 68 % (31-73) 72 % (31-73) Lymphocytes (%) (Auto) 19 % (24-48) 17 % (24-48) Monocytes (%) (Auto) 9 % (0-9) 8 % (0-9) Eosinophils (%) (Auto) 2 % (0-3) 3 % (0-3) Basophils (%) (Auto) 1 % (0-3) 1 % (0-3) Neutrophils # (Auto) 6.4 x10^3uL (1.8-7.7) 6.0 x10^3uL (1.8-7.7) Lymphocytes # (Auto) 1.8 x10^3/uL (1.0-4.8) 1.5 x10^3/uL (1.0-4.8) Monocytes # (Auto) 0.8 x10^3/uL (0.0-1.1) 0.7 x10^3/uL (0.0-1.1) Eosinophils # (Auto) 0.2 x10^3/uL (0.0-0.7) 0.2 x10^3/uL (0.0-0.7) Basophils # (Auto) 0.1 x10^3/uL (0.0-0.2) 0.1 x10^3/uL (0.0-0.2) Sodium Level 142 mmol/L (136-145) Potassium Level 3.7 mmol/L (3.5-5.1) Chloride Level 105 mmol/L (98-107) Carbon Dioxide Level 26 mmol/L (21-32) Anion Gap 11 (6-14) Blood Urea Nitrogen 11 mg/dL (8-26) Creatinine 1.0 mg/dL (0.7-1.3) Estimated GFR (Cockcroft-Gault) 80.1 BUN/Creatinine Ratio 11 (6-20) Glucose Level 93 mg/dL (70-99) Calcium Level 9.0 mg/dL (8.5-10.1) Total Bilirubin 0.3 mg/dL (0.2-1.0) Aspartate Amino Transf (AST/SGOT) 28 U/L (15-37) Alanine Aminotransferase (ALT/SGPT) 94 U/L (16-63) Alkaline Phosphatase 90 U/L (46-116) Total Protein 7.6 g/dL (6.4-8.2) Albumin 3.3 g/dL (3.4-5.0) Albumin/Globulin Ratio 0.8 (1.0-1.7) Medications Active Scripts Medications Dose Route/Sig Max Daily Dose Days Date Category Dose Instructions Percocet 5-325 Mg Tablet (Oxycodone/Acetaminophen) 1 Each Tablet 1-2 Tab PO Q4-6HRS 09/22/17 Reported LAST DOSE GIVEN: DATE: 09/22/17 TIME: so next dose at as needed for pain Xanax (Alprazolam) 0.5 Mg Tablet 0.5 Mg PO PRN Q6HRS PRN 02/13/15 Reported Impression . IMPRESSION: 1. Bilateral pulmonary opacities compatible with aspiration pneumonia. 2. Progressive dyspnea secondary to above. 3. BMI of 37. 4. Recent left ankle I and D surgery done as an outpatient. 5. Gastroesophageal reflux. Plan . 1. I agree with current utilization of Zosyn. 2. We will make adjustments on antibiotics depending on patient's clinical response. 3. P.r.n. nebulized treatments. 4. The patient will follow up in the office in 2 months with a repeat CT chest. DULCE BREEN MD Jul 15, 2018 07:59
[2018-07-15] MEDS ORDERED: ASPIRIN 325 MG TABLET PO SCH (09:00)
[2018-07-15] MEDS: BENZONATATE 100 MG CAPSULE. PO SCH (09:21)
[2018-07-15] MEDS: guaiFENesin DM 200MG/20MG 10 ML SYRUP PO SCH (09:21)
[2018-07-15] MEDS ORDERED: BENZ-8 PO (10:41)
[2018-07-15] MEDS ORDERED: AMOX1TAB61 PO (10:41)
[2018-07-15] MEDS ORDERED: PROAIR HFA8.5 GM INH (10:41)
[2018-07-15 10:55] VITALS: BP 124/81
--- NOTE | 2018-07-15 11:23 | PDOC3 ---
Discharge Summary Visit Information Date of Admission: Jul 14, 2018 Date of Discharge: Jul 15, 2018 Admitting Diagnosis Comment: Right lobar pneumonia with some left lower lobe involvement Never smoker Obesity, BMI 37 Recent left ankle I and D for an injury way back 2006 - sx done as OP History GERD-that is chronic stable Final Diagnosis Problems Medical Problems: (1) Postoperative pneumonia Status: Acute Brief Hospital Course Allergies Allergies Coded Allergies Type Severity Reaction Last Updated Verified ibuprofen Allergy Intermediate Swelling 07/14/18 Yes Vital Signs Vital Signs Date Time Temp Pulse Resp B/P (MAP) Pulse Ox O2 Delivery O2 Flow Rate FiO2 07/15/18 11:14 Room Air 07/15/18 10:55 98.5 80 18 124/81 (95) 97 98.5 Lab Results Laboratory Tests Test 07/14/18 11:45 07/15/18 06:05 White Blood Count 9.3 x10^3/uL (4.0-11.0) 8.4 x10^3/uL (4.0-11.0) Red Blood Count 4.47 x10^6/uL (4.30-5.70) 4.08 x10^6/uL (4.30-5.70) Hemoglobin 13.8 g/dL (13.0-17.5) 12.5 g/dL (13.0-17.5) Hematocrit 39.7 % (39.0-53.0) 36.2 % (39.0-53.0) Mean Corpuscular Volume 89 fL (79-100) 89 fL (79-100) Mean Corpuscular Hemoglobin 31 pg (25-35) 31 pg (25-35) Mean Corpuscular Hemoglobin Concent 35 g/dL (31-37) 35 g/dL (31-37) Red Cell Distribution Width 14.2 % (11.5-14.5) 14.7 % (11.5-14.5) Platelet Count 283 x10^3/uL (140-400) 253 x10^3/uL (140-400) Neutrophils (%) (Auto) 68 % (31-73) 72 % (31-73) Lymphocytes (%) (Auto) 19 % (24-48) 17 % (24-48) Monocytes (%) (Auto) 9 % (0-9) 8 % (0-9) Eosinophils (%) (Auto) 2 % (0-3) 3 % (0-3) Basophils (%) (Auto) 1 % (0-3) 1 % (0-3) Neutrophils # (Auto) 6.4 x10^3uL (1.8-7.7) 6.0 x10^3uL (1.8-7.7) Lymphocytes # (Auto) 1.8 x10^3/uL (1.0-4.8) 1.5 x10^3/uL (1.0-4.8) Monocytes # (Auto) 0.8 x10^3/uL (0.0-1.1) 0.7 x10^3/uL (0.0-1.1) Eosinophils # (Auto) 0.2 x10^3/uL (0.0-0.7) 0.2 x10^3/uL (0.0-0.7) Basophils # (Auto) 0.1 x10^3/uL (0.0-0.2) 0.1 x10^3/uL (0.0-0.2) Sodium Level 142 mmol/L (136-145) Potassium Level 3.7 mmol/L (3.5-5.1) Chloride Level 105 mmol/L (98-107) Carbon Dioxide Level 26 mmol/L (21-32) Anion Gap 11 (6-14) Blood Urea Nitrogen 11 mg/dL (8-26) Creatinine 1.0 mg/dL (0.7-1.3) Estimated GFR (Cockcroft-Gault) 80.1 BUN/Creatinine Ratio 11 (6-20) Glucose Level 93 mg/dL (70-99) Calcium Level 9.0 mg/dL (8.5-10.1) Total Bilirubin 0.3 mg/dL (0.2-1.0) Aspartate Amino Transf (AST/SGOT) 28 U/L (15-37) Alanine Aminotransferase (ALT/SGPT) 94 U/L (16-63) Alkaline Phosphatase 90 U/L (46-116) Total Protein 7.6 g/dL (6.4-8.2) Albumin 3.3 g/dL (3.4-5.0) Albumin/Globulin Ratio 0.8 (1.0-1.7) Laboratory Tests Test 07/14/18 11:45 10/27/18 06:05 White Blood Count 9.3 x10^3/uL (4.0-11.0) 8.4 x10^3/uL (4.0-11.0) Red Blood Count 4.47 x10^6/uL (4.30-5.70) 4.08 x10^6/uL (4.30-5.70) Hemoglobin 13.8 g/dL (13.0-17.5) 12.5 g/dL (13.0-17.5) Hematocrit 39.7 % (39.0-53.0) 36.2 % (39.0-53.0) Mean Corpuscular Volume 89 fL (79-100) 89 fL (79-100) Mean Corpuscular Hemoglobin 31 pg (25-35) 31 pg (25-35) Mean Corpuscular Hemoglobin Concent 35 g/dL (31-37) 35 g/dL (31-37) Red Cell Distribution Width 14.2 % (11.5-14.5) 14.7 % (11.5-14.5) Platelet Count 283 x10^3/uL (140-400) 253 x10^3/uL (140-400) Neutrophils (%) (Auto) 68 % (31-73) 72 % (31-73) Lymphocytes (%) (Auto) 19 % (24-48) 17 % (24-48) Monocytes (%) (Auto) 9 % (0-9) 8 % (0-9) Eosinophils (%) (Auto) 2 % (0-3) 3 % (0-3) Basophils (%) (Auto) 1 % (0-3) 1 % (0-3) Neutrophils # (Auto) 6.4 x10^3uL (1.8-7.7) 6.0 x10^3uL (1.8-7.7) Lymphocytes # (Auto) 1.8 x10^3/uL (1.0-4.8) 1.5 x10^3/uL (1.0-4.8) Monocytes # (Auto) 0.8 x10^3/uL (0.0-1.1) 0.7 x10^3/uL (0.0-1.1) Eosinophils # (Auto) 0.2 x10^3/uL (0.0-0.7) 0.2 x10^3/uL (0.0-0.7) Basophils # (Auto) 0.1 x10^3/uL (0.0-0.2) 0.1 x10^3/uL (0.0-0.2) Sodium Level 142 mmol/L (136-145) Potassium Level 3.7 mmol/L (3.5-5.1) Chloride Level 105 mmol/L (98-107) Carbon Dioxide Level 26 mmol/L (21-32) Anion Gap 11 (6-14) Blood Urea Nitrogen 11 mg/dL (8-26) Creatinine 1.0 mg/dL (0.7-1.3) Estimated GFR (Cockcroft-Gault) 80.1 BUN/Creatinine Ratio 11 (6-20) Glucose Level 93 mg/dL (70-99) Calcium Level 9.0 mg/dL (8.5-10.1) Total Bilirubin 0.3 mg/dL (0.2-1.0) Aspartate Amino Transf (AST/SGOT) 28 U/L (15-37) Alanine Aminotransferase (ALT/SGPT) 94 U/L (16-63) Alkaline Phosphatase 90 U/L (46-116) Total Protein 7.6 g/dL (6.4-8.2) Albumin 3.3 g/dL (3.4-5.0) Albumin/Globulin Ratio 0.8 (1.0-1.7) Brief Hospital Course Mr. Knox is a 47 old pleasant male recently had an I and D of the left ankle from chronic leg issues - done as outpatient at another facility, started to have some greenish phlegm and fevers post procedure. Found to have pneumonia on the whole right side of the lung and a little bit of the left lower lung. Admitted with comanagement of pulmonary. Some hypoxic at the ER but that has since resolved. Doing well on Zosyn. I am Rx Ing Augmentin 875 twice a day for 10 days. Tessalon Perles and some Pro Air. No known chronic lung problems. Cleared from pulmo to go home with repeat CAT scan 2 months time and I have provided Rx for this Patient seen and examined, discussed charge time 30 minutes, discussed with at bedside Discharge Information Condition at Discharge: Improved, Stable Disposition/Orders: D/C to Home Scheduled Amoxicillin/Potassium Clav (Augmentin 875-125 Tablet) 1 Each Tablet, 1 TAB PO BID, #20 Prescribed by: JOSE RIVAS on 07/15/18 1041 Aspirin (Aspirin) 325 Mg Tablet, 1 TAB PO DAILY, #30 Ref 5 (Reported) Entered as Reported by: COLTEN ALCARAZ on 07/14/182005 Last Action: Continued on 07/14/182014 by COLTEN ALCARAZ Benzonatate (Benzonatate) 100 Mg Capsule, 100 MG PO VLI191 for 10 Days, #30 Prescribed by: JOSE RIVAS on 07/15/18 1041 Docusate Sodium (Docusate Sodium) 100 Mg Capsule, 1 CAP PO BID, #30 (Reported) Entered as Reported by: COLTEN ALCARAZ on 07/14/182005 Last Action: New Order on 07/14/182005 by COLTEN ALCARAZ Ondansetron (Zofran Odt) 8 Mg Tab.rapdis, 1 TAB PO Q8HRS, #30 (Reported) Entered as Reported by: COLTEN ALCARAZ on 07/14/182005 Last Action: New Order on 07/14/182005 by COLTEN ALCARAZ Oxycodone/Apap 5-325 (Percocet 5-325 Mg Tablet) 1 Each Tablet, 1-2 TAB PO Q4- 6HRS for PAIN, #30 (Reported) LAST DOSE GIVEN: DATE: 09/22/17 TIME: so next dose at as needed for pain Entered as Reported by: PRANAV LYNCH on 09/22/17 1351 Last Action: Continued on 07/14/18 1427 by JOSE RIVAS Scheduled PRN Albuterol Sulfate (Proair Hfa Inhaler) 8.5 Gm Hfa.aer.ad, 1 PUFF INH PRN Q6HRS PRN for SHORTNESS OF BREATH for 14 Days, Ref 0 Prescribed by: JOSE RIVAS on 07/15/18 1041 Alprazolam (Xanax) 0.5 Mg Tablet, 0.5 MG PO PRN Q6HRS PRN for ANXIETY / AGITATION, Ref 0 (Reported) Entered as Reported by: CA LUJAN on 02/13/15 0714 Last Action: Continued on 07/14/18 1427 by JOSE ENGLISH MD Jul 15, 2018 11:23
--- NOTE | 2018-07-15 11:47 | PDOC ---
PULMONARY PROGRESS NOTES Subjective PT FEELS BETTER NO MORE SOA Vitals Vital Signs Date Time Temp Pulse Resp B/P (MAP) Pulse Ox O2 Delivery O2 Flow Rate FiO2 07/15/18 11:28 96 Room Air 07/15/18 10:55 98.5 80 18 124/81 (95) 98.5 ROS: No Nausea, No Abdominal Pain, No Increase Cough Lungs: Crackles Cardiovascular: S1, S2 Abdomen: Soft Neuro Exam: Alert Extremities: No Edema Skin: Warm Labs Laboratory Tests Test 07/14/18 11:45 07/15/18 06:05 White Blood Count 9.3 x10^3/uL (4.0-11.0) 8.4 x10^3/uL (4.0-11.0) Red Blood Count 4.47 x10^6/uL (4.30-5.70) 4.08 x10^6/uL (4.30-5.70) Hemoglobin 13.8 g/dL (13.0-17.5) 12.5 g/dL (13.0-17.5) Hematocrit 39.7 % (39.0-53.0) 36.2 % (39.0-53.0) Mean Corpuscular Volume 89 fL (79-100) 89 fL (79-100) Mean Corpuscular Hemoglobin 31 pg (25-35) 31 pg (25-35) Mean Corpuscular Hemoglobin Concent 35 g/dL (31-37) 35 g/dL (31-37) Red Cell Distribution Width 14.2 % (11.5-14.5) 14.7 % (11.5-14.5) Platelet Count 283 x10^3/uL (140-400) 253 x10^3/uL (140-400) Neutrophils (%) (Auto) 68 % (31-73) 72 % (31-73) Lymphocytes (%) (Auto) 19 % (24-48) 17 % (24-48) Monocytes (%) (Auto) 9 % (0-9) 8 % (0-9) Eosinophils (%) (Auto) 2 % (0-3) 3 % (0-3) Basophils (%) (Auto) 1 % (0-3) 1 % (0-3) Neutrophils # (Auto) 6.4 x10^3uL (1.8-7.7) 6.0 x10^3uL (1.8-7.7) Lymphocytes # (Auto) 1.8 x10^3/uL (1.0-4.8) 1.5 x10^3/uL (1.0-4.8) Monocytes # (Auto) 0.8 x10^3/uL (0.0-1.1) 0.7 x10^3/uL (0.0-1.1) Eosinophils # (Auto) 0.2 x10^3/uL (0.0-0.7) 0.2 x10^3/uL (0.0-0.7) Basophils # (Auto) 0.1 x10^3/uL (0.0-0.2) 0.1 x10^3/uL (0.0-0.2) Sodium Level 142 mmol/L (136-145) Potassium Level 3.7 mmol/L (3.5-5.1) Chloride Level 105 mmol/L (98-107) Carbon Dioxide Level 26 mmol/L (21-32) Anion Gap 11 (6-14) Blood Urea Nitrogen 11 mg/dL (8-26) Creatinine 1.0 mg/dL (0.7-1.3) Estimated GFR (Cockcroft-Gault) 80.1 BUN/Creatinine Ratio 11 (6-20) Glucose Level 93 mg/dL (70-99) Calcium Level 9.0 mg/dL (8.5-10.1) Total Bilirubin 0.3 mg/dL (0.2-1.0) Aspartate Amino Transf (AST/SGOT) 28 U/L (15-37) Alanine Aminotransferase (ALT/SGPT) 94 U/L (16-63) Alkaline Phosphatase 90 U/L (46-116) Total Protein 7.6 g/dL (6.4-8.2) Albumin 3.3 g/dL (3.4-5.0) Albumin/Globulin Ratio 0.8 (1.0-1.7) Laboratory Tests Test 07/15/18 06:05 White Blood Count 8.4 x10^3/uL (4.0-11.0) Red Blood Count 4.08 x10^6/uL (4.30-5.70) Hemoglobin 12.5 g/dL (13.0-17.5) Hematocrit 36.2 % (39.0-53.0) Mean Corpuscular Volume 89 fL (79-100) Mean Corpuscular Hemoglobin 31 pg (25-35) Mean Corpuscular Hemoglobin Concent 35 g/dL (31-37) Red Cell Distribution Width 14.7 % (11.5-14.5) Platelet Count 253 x10^3/uL (140-400) Neutrophils (%) (Auto) 72 % (31-73) Lymphocytes (%) (Auto) 17 % (24-48) Monocytes (%) (Auto) 8 % (0-9) Eosinophils (%) (Auto) 3 % (0-3) Basophils (%) (Auto) 1 % (0-3) Neutrophils # (Auto) 6.0 x10^3uL (1.8-7.7) Lymphocytes # (Auto) 1.5 x10^3/uL (1.0-4.8) Monocytes # (Auto) 0.7 x10^3/uL (0.0-1.1) Eosinophils # (Auto) 0.2 x10^3/uL (0.0-0.7) Basophils # (Auto) 0.1 x10^3/uL (0.0-0.2) Medications Active Scripts Medications Dose Route/Sig Max Daily Dose Days Date Category Dose Instructions Percocet 5-325 Mg Tablet (Oxycodone/Acetaminophen) 1 Each Tablet 1-2 Tab PO Q4-6HRS 09/22/17 Reported LAST DOSE GIVEN: DATE: 09/22/17 TIME: so next dose at as needed for pain Xanax (Alprazolam) 0.5 Mg Tablet 0.5 Mg PO PRN Q6HRS PRN 02/13/15 Reported Impression . IMPRESSION: 1. Bilateral pulmonary opacities compatible with aspiration pneumonia. 2. Progressive dyspnea secondary to above. 3. BMI of 37. 4. Recent left ankle I and D surgery done as an outpatient. 5. Gastroesophageal reflux. Plan . WILL CONTINUE THE SAME ONCE D/C FOLLOW UP IN MY OFFICE DULCE BREEN MD Jul 15, 2018 11:47
[2018-07-15] MEDS ORDERED: LACTOBACILLUS RHAMNOSUS GG 1 CAPSULE. PO SCH (21:00)
== END 2018-07-15 12:00 | disposition home or self-care (01) | DRG 179 ==
LOC: ER 10:43 → 5 SOUTH 14:15
PROVIDERS: ADMIT Internal Medicine; ATTEND Internal Medicine
DX: J69.0 Pneumonitis due to inhalation of food and vomit (principal); F41.9 Anxiety disorder, unspecified; K21.9 Gastro-esophageal reflux disease without esophagitis; Z82.49 Family history of ischemic heart disease and other diseases of the circulatory system; Z82.3 Family history of stroke; Z68.37 Body mass index [BMI] 37.0-37.9, adult; E66.9 Obesity, unspecified; Z79.82 Long term (current) use of aspirin; Z79.899 Other long term (current) drug therapy; Z90.49 Acquired absence of other specified parts of digestive tract
CPT/HCPCS: 36415; 71046; 71275; 80053; 85025; 87040; 90471; 90756; 93005; 94640; 94760; 96365; J2543; J7613; J7620; Q0163; Q9967; 99285-25; Q2035

== ENCOUNTER 2020-11-22 12:41 | Emergency (ER) | payer BC ==
[~2020-11-22] VITALS: Ht 170.2 cm; Wt 104.0 kg
[~2020-11-22 12:41] MED LIST changes: +ALBU2.5V8 INH; +AMOX1TAB61 PO; +ASPI325T8 PO; +BENZ-8 PO; +DOCU100C28 PO; +HYDR-3164 PO; -HYDR-971 PO; +ONDA8TAB12 PO; -OXYC-323 PO; +OXYC1TAB15 PO; +RANI-376 PO; -RANI150T21 PO; +SERT-268 PO; -SERT100T8 PO
--- NOTE | 2020-11-22 13:13 | PHYS DOC ---
Past Medical History Past Medical History: Anxiety Past Surgical History: Appendectomy, Cholecystectomy, Tonsillectomy, Other Additional Past Surgical Histo: left foot compound fracture repair,HERNIA Smoking Status: Never Smoker Alcohol Use: Occasionally Drug Use: None General Adult EDM: Chief Complaint: ABDOMINAL PAIN HPI: HPI: Patient is a 49 year old male who presented to ER with left lower abdominal pain since 5 days ago. Symptoms did not get better so he came in for evaluation. Patient denies any fever, no nausea vomiting. Patient denies any urinary symptoms. Review of Systems: Review of Systems: Constitutional: Denies fever or chills. [] Eyes: Denies change in visual acuity. [] HENT: Denies nasal congestion or sore throat. [] Respiratory: Denies cough or shortness of breath. [] Cardiovascular: Denies chest pain or edema. [] GI: Positive for left lower abdominal pain, no nausea vomiting, no diarrhea : Denies dysuria. [] Musculoskeletal: Denies back pain or joint pain. [] Integument: Denies rash. [] Neurologic: Denies headache, focal weakness or sensory changes. [] Endocrine: Denies polyuria or polydipsia. [] Lymphatic: Denies swollen glands. [] Psychiatric: Denies depression or anxiety. [] Heart Score: C/O Chest Pain: N/A Risk Factors: Risk Factors: DM, Current or recent (<one month) smoker, HTN, HLP, family history of CAD, obesity. Risk Scores: Score 0 - 3: 2.5% MACE over next 6 weeks - Discharge Home Score 4 - 6: 20.3% MACE over next 6 weeks - Admit for Clinical Observation Score 7 - 10: 72.7% MACE over next 6 weeks - Early Invasive Strategies Current Medications: Current Medications Medications (Trade) Dose Ordered Sig/Fuentes Start Time Stop Time Status Last Admin Dose Admin Sodium Chloride 1,000 ml @ 1,000 mls/hr Q1H 11/22/20 13:15 11/22/20 14:14 UNV Allergies: Allergies: Allergies Coded Allergies Type Severity Reaction Last Updated Verified ibuprofen Allergy Intermediate Swelling 07/14/18 Yes Physical Exam: PE: Constitutional: Well developed, well nourished, no acute distress, non-toxic appearance. [] HENT: Normocephalic, atraumatic, bilateral external ears normal, oropharynx moist, no oral exudates, nose normal. [] Eyes: PERRLA, EOMI, conjunctiva normal, no discharge. [] Neck: Normal range of motion, no tenderness, supple, no stridor. [] Cardiovascular:Heart rate regular rhythm, no murmur [] Lungs & Thorax: Bilateral breath sounds clear to auscultation [] Abdomen: Bowel sounds normal, soft, no tenderness, no masses, no pulsatile masses. [] Skin: Warm, dry, no erythema, no rash. [] Back: No tenderness, no CVA tenderness. [] Extremities: No tenderness, no cyanosis, no clubbing, ROM intact, no edema. [] Neurologic: Alert and oriented X 3, normal motor function, normal sensory function, no focal deficits noted. [] Psychologic: Affect normal, judgement normal, mood normal. [] Current Patient Data: Labs: Laboratory Tests Test 11/22/20 13:20 White Blood Count 6.5 x10^3/uL Red Blood Count 4.51 x10^6/uL Hemoglobin 13.9 g/dL Hematocrit 40.2 % Mean Corpuscular Volume 89 fL Mean Corpuscular Hemoglobin 31 pg Mean Corpuscular Hemoglobin Concent 35 g/dL Red Cell Distribution Width 14.0 % Platelet Count 213 x10^3/uL Neutrophils (%) (Auto) 69 % Lymphocytes (%) (Auto) 19 % Monocytes (%) (Auto) 9 % Eosinophils (%) (Auto) 2 % Basophils (%) (Auto) 1 % Neutrophils # (Auto) 4.5 x10^3/uL Lymphocytes # (Auto) 1.2 x10^3/uL Monocytes # (Auto) 0.6 x10^3/uL Eosinophils # (Auto) 0.1 x10^3/uL Basophils # (Auto) 0.1 x10^3/uL Sodium Level 141 mmol/L Potassium Level 3.6 mmol/L Chloride Level 104 mmol/L Carbon Dioxide Level 27 mmol/L Anion Gap 10 Blood Urea Nitrogen 7 mg/dL Creatinine 0.9 mg/dL Estimated GFR (Cockcroft-Gault) 89.7 BUN/Creatinine Ratio 8 Glucose Level 82 mg/dL Calcium Level 8.7 mg/dL Total Bilirubin 0.7 mg/dL Aspartate Amino Transf (AST/SGOT) 168 U/L Alanine Aminotransferase (ALT/SGPT) 335 U/L Alkaline Phosphatase 114 U/L Total Protein 7.6 g/dL Albumin 3.6 g/dL Albumin/Globulin Ratio 0.9 Lipase 56 U/L Current Medications Medications (Trade) Dose Ordered Sig/Fuentes Route PRN Reason Start Time Stop Time Status Last Admin Dose Admin Sodium Chloride 1,000 ml @ 1,000 mls/hr Q1H IV 11/22/20 13:15 11/22/20 14:14 DC 11/22/20 13:34 Iohexol (Omnipaque 300 Mg/ml) 75 ml 1X ONCE IV 11/22/20 14:30 11/22/20 14:31 DC 11/22/20 14:27 Metronidazole (Flagyl) 500 mg 1X ONCE PO 11/22/20 15:15 11/22/20 15:16 DC 11/22/20 15:17 Ciprofloxacin (Cipro) 500 mg 1X ONCE PO 11/22/20 15:15 11/22/20 15:16 DC 11/22/20 15:17 Morphine Sulfate (Morphine Sulfate) 4 mg 1X ONCE IV 11/22/20 15:15 11/22/20 15:16 DC 11/22/20 15:17 EKG: EKG: [] Radiology/Procedures: Radiology/Procedures: [][facility] [id number] [place], [place] [id number] IMAGING REPORT Signed PATIENT: JACKELYN CONTRERAS ACCOUNT: [id number] : 1970 LOCATION: ER AGE: 49 SEX: M EXAM STATUS: REG ER ORD. PHYSICIAN: CITLALI LINDSEY DO REASON: LLQ ABDOMINAL PAIN FOR 3 DAYS PROCEDURE: CT ABD PELV W/ IV CONTRST ONLY EXAM: CT Abdomen and Pelvis with IV contrast CLINICAL HISTORY: LLQ ABDOMINAL PAIN FOR 3 DAYS COMPARISON: 09/13/2017 TECHNIQUE: Helical CT of the abdomen and pelvis was performed following the administration of intravenous contrast. Axial, coronal and sagittal reformatted images were generated. PQRS compliance statement - One or more of the following individualized dose reduction techniques were utilized for this study: 1. Automated exposure control 2. Adjustment of the mA and/or kV according to patient size 3. Use of iterative reconstruction technique FINDINGS: Lower Chest: Linear opacity lingula likely scarring/atelectasis. Linear vascular lobes also likely scarring/atelectasis. Abdomen and Pelvis: Hepatic hypoattenuation likely fatty liver. Liver measures 18.2 cm. Costophrenic clips are seen. No biliary dilatation. Pancreas is unremarkable. Spleen is enlarged measuring 13.5 cm in length. Right adrenal gland is unremarkable. 4 mm fat-containing left adrenal lesion li leela adrenal myelolipoma. Symmetric nephrograms. No focal renal lesion. No hydronephrosis. No hydroureter. Bladder is unremarkable. Moderate colonic stool content is seen. No small or large bowel dilatation. Colonic diverticula are seen. Infiltration is seen about sigmoid colonic diverticula consistent with acute diverticulitis. No loculated fluid collection. No abdominal pelvic ascites. Aortic calcifications are noted. Small fat- containing periumbilical hernia. Bones: No aggressive osseous lesion is seen. IMPRESSION: 1. Acute sigmoid diverticulitis without associated loculated fluid collection or evidence for perforation. 2. Hepatic hypoattenuation likely fatty liver. Borderline hepatomegaly. 3. Splenomegaly. Electronically signed by: Derrick Mancuso MD (11/22/2020 2:45 PM) [facility] DICTATED and SIGNED BY: DERRICK MANCUSO MD DATE: 11/22/20 [id number] 0 Course & Med Decision Making: Course & Med Decision Making Pertinent Labs and Imaging studies reviewed. (See chart for details) Patient is a 49-year-old male who was evaluated in ER due to left lower abdomin al pain for 3 days, CT scan abdomen pelvic show evidence of diverticulitis. Patient had no nausea vomiting, he felt much better now patient can go home for outpatient treatment, patient will be put on Cipro and Flagyl. Patient will need to follow-up with a GI specialist after the infection gone for further evaluation and treatment. Patient is amenable to plan of care. Dragon Disclaimer: Dragon Disclaimer: This electronic medical record was generated, in whole or in part, using a voice recognition dictation system. Departure Departure Impression: Primary Impression: Acute diverticulitis Disposition: 01 DC HOME SELF CARE/HOMELESS Condition: STABLE Referrals: KRISTIAN KWAN MD (PCP) IRINEO MALDONADO MD Please call this GI doctor for follow up next week. Patient Instructions: Diverticulitis Additional Instructions: Thank you for visiting our Emergency Department. We appreciate you trusting us with your care. If any additional problems come up don't hesitate to return to visit us. Please follow up with your primary care provider so they can plan additional care if needed and know about the problem that you had. If symptoms worsen come back to the Emergency Department. Any concerning symptoms that start such as chest pain, shortness of air, weakness or numbness on one side of the body, running high fevers or any other concerning symptoms return to the ER. Scripts Metronidazole (FLAGYL) 500 Mg Tablet 500 MG PO TID for 10 Days, #30 TAB Prov: CITLALI LINDSEY DO 11/22/20 Ciprofloxacin Hcl (CIPRO) 500 Mg Tablet 1 TAB PO BID for 10 Days, #20 TAB 0 Refills Prov: CITLALI LINDSEY DO 11/22/20 CITLALI LINDSEY DO Nov 22, 2020 13:13
[2020-11-22] MEDS ORDERED: IV NORMAL SALINE 1000ML BAG 1,000 ML IV SCH (13:15)
[2020-11-22 13:35] LABS: BASO # 0.1 x10^3/uL (0.0-0.2); BASO % 1 % (0-3); EOS # 0.1 x10^3/uL (0.0-0.7); EOS % 2 % (0-3); HEMATOCRIT 40.2 % (39.0-53.0); HEMOGLOBIN 13.9 g/dL (13.0-17.5); LYMPH # 1.2 x10^3/uL (1.0-4.8); LYMPH % 19 % (24-48); MEAN CORPUSCULAR HEMOGLOBIN 31 pg (25-35); MEAN CORPUSCULAR HGB CONC 35 g/dL (31-37); MEAN CORPUSCULAR VOLUME 89 fL (79-100); MONO # 0.6 x10^3/uL (0.0-1.1); MONO % 9 % (0-9); NEUT # 4.5 x10^3/uL (1.8-7.7); NEUT % 69 % (31-73); PLATELET COUNT 213 x10^3/uL (140-400); RED BLOOD COUNT 4.51 x10^6/uL (4.30-5.70); WHITE BLOOD COUNT 6.5 x10^3/uL (4.0-11.0)
[2020-11-22 13:43] LABS: CALCIUM 8.7 mg/dL (8.5-10.1); CREATININE 0.9 mg/dL (0.7-1.3); GFR 89.7; POTASSIUM 3.6 mmol/L (3.5-5.1)
[2020-11-22 13:48] LABS: ALBUMIN 3.6 g/dL (3.4-5.0); ALBUMIN/GLOBULIN RATIO 0.9 (1.0-1.7); TOTAL BILIRUBIN 0.7 mg/dL (0.2-1.0); TOTAL PROTEIN 7.6 g/dL (6.4-8.2)
[2020-11-22] MEDS ORDERED: IOHEXOL 300 MG/ML 100ML VIAL. IV ONE (14:30)
--- NOTE | 2020-11-22 14:47 | RAD ---
EXAM: CT Abdomen and Pelvis with IV contrast CLINICAL HISTORY: LLQ ABDOMINAL PAIN FOR 3 DAYS COMPARISON: 09/13/2017 TECHNIQUE: Helical CT of the abdomen and pelvis was performed following the administration of intrave nous contrast. Axial, coronal and sagittal reformatted images were generated. PQRS compliance statement - One or more of the following individualized dose reduction techniques wer e utilized for this study: 1. Automated exposure control 2. Adjustment of the mA and/or kV according to patient size 3. Use of iterative reconstruction technique FINDINGS: Lower Chest: Linear opacity lingula likely scarring/atelectasis. Linear vascular lobes also likely scarring/atelec tasis. Abdomen and Pelvis: Hepatic hypoattenuation likely fatty liver. Liver measures 18.2 cm. Costophrenic clips are seen. No b iliary dilatation. Pancreas is unremarkable. Spleen is enlarged measuring 13.5 cm in length. Right adrenal gland is unremarkable. 4 mm fat-containing left adrenal lesion likely adrenal myelolipo ma. Symmetric nephrograms. No focal renal lesion. No hydronephrosis. No hydroureter. Bladder is unrem arkable. Moderate colonic stool content is seen. No small or large bowel dilatation. Colonic diverticula are s een. Infiltration is seen about sigmoid colonic diverticula consistent with acute diverticulitis. No loculated fluid collection. No abdominal pelvic ascites. Aortic calcifications are noted. Small fat-containing periumbilical vanessa ia. Bones: No aggressive osseous lesion is seen. IMPRESSION: 1. Acute sigmoid diverticulitis without associated loculated fluid collection or evidence for perfor ation. 2. Hepatic hypoattenuation likely fatty liver. Borderline hepatomegaly. 3. Splenomegaly. Electronically signed by: Derrick Robb MD (11/22/2020 2:45 PM) [facility]
[2020-11-22] MEDS ORDERED: CIPROFLOXACIN HCL 250 MG TABLET. PO ONE (15:15)
[2020-11-22] MEDS ORDERED: metroNIDAZOLE 500 MG TABLET PO ONE (15:15)
[2020-11-22] MEDS ORDERED: MORPHINE SULFATE 4 MG/ML VIAL. IV ONE (15:15)
[2020-11-22 15:30] VITALS: BP 145/66
[2020-11-22] MEDS ORDERED: METR500T PO (15:32)
[2020-11-22] MEDS ORDERED: CIPR500T94 PO (15:32)
== END 2020-11-22 16:37 | disposition home or self-care (01) ==
LOC: ER 12:41
DX: K57.32 Diverticulitis of large intestine without perforation or abscess without bleeding (principal); R16.1 Splenomegaly, not elsewhere classified; Z88.8 Allergy status to other drugs, medicaments and biological substances
CPT/HCPCS: 36415; 74177; 80053; 83690; 85025; 96361; 96374; 99285; J2270; J7030; Q9967